=== PATIENT | female | born 1955 | race Caucasian/White ===

== ENCOUNTER → 2017-04-03 | Outpatient (CLI) | payer OTHER ==
[~2017-04-03] MED LIST: ANASTROZOLE1 MG PO; CALCIUM 600 +1 EAC1 PO; CHROMIUM PIC1000 MCG PO; CIPRO500 MG PO; CRANBERRY500 M1 PO; EYE DROP15 ML OP; FLAGYL500 MG PO; LEVAQUIN 500 M500 M2 PO; LEVEMIR SUBQ; MEGARED OMEGA-1 EAC1 PO; METFORMIN HCL500 MG PO; NOVOLOG100 UNIT/1 SUBQ; OXYCODONE HCL 55 MG PO; PREDNISONE 20 M20 MG PO; PRINIVIL20 M1 PO; SELENIUM200 MC3 PO; TRAMADOL 50 MG50 MG PO; TURMERIC500 M1 PO; VITAMIN D3400 UNIT PO; XGEVA120 MG/1.7 SQ; XOPENEX 0.63 MG/3 M1 INH
== END ==
LOC: PET 08:35
DX: C79.52 Secondary malignant neoplasm of bone marrow (principal); N63.0 Unspecified lump in unspecified breast; Q83.1 Accessory breast; Z85.3 Personal history of malignant neoplasm of breast

== ENCOUNTER → 2017-10-09 | Outpatient (CLI) | payer OTHER ==
[~2017-10-09] MED LIST changes: +ALLEGRA ALLERG180 MG PO; +COLACE100 MG PO; +NEURONTIN 300M300 M2 PO
== END ==
LOC: PET 07:48
DX: C50.912 Malignant neoplasm of unspecified site of left female breast (principal)

== ENCOUNTER → 2019-03-21 | Outpatient (CLI) | payer OTHER ==
[~2019-03-21] MED LIST changes: +BACTRIM DS TAB1 EACH PO; +COREG6.25 MG PO; +COZAAR 50 MG TA50 M1 PO; +DIPHENHYDRAMINE25 M3 PO; +FEMARA2.5 MG PO; +HUMALOG100 UNIT/1 SUBQ; +HUMALOG100 UNIT/2 SUBQ; +HYDRALAZINE 2525 MG PO; +LEVALBUTER1.25 MG/0. INH; +TOUJEO MAX300 UNIT/1 SUBQ
== END ==
LOC: PET 13:05
DX: C50.919 Malignant neoplasm of unspecified site of unspecified female breast (principal); K76.0 Fatty (change of) liver, not elsewhere classified; K44.9 Diaphragmatic hernia without obstruction or gangrene; N20.0 Calculus of kidney; I11.9 Hypertensive heart disease without heart failure; J84.10 Pulmonary fibrosis, unspecified; R91.8 Other nonspecific abnormal finding of lung field; Z90.710 Acquired absence of both cervix and uterus; Z90.49 Acquired absence of other specified parts of digestive tract

== ENCOUNTER → 2019-08-10 | Outpatient (CLI) | payer OTHER | LOC: PET 10:05 | DX: C79.81 Secondary malignant neoplasm of breast (principal); C80.1 Malignant (primary) neoplasm, unspecified ==